=== PATIENT | male | born 1995 | race Native Hawaiian/Other Pacific Islander ===

== ENCOUNTER 2018-02-18 23:44 | Emergency (ER) | payer OTHER ==
[~2018-02-18] VITALS: Ht 185.4 cm; Wt 85.3 kg
[2018-02-19 00:22] VITALS: BP 119/67; TEMP 98.7
== END 2018-02-19 00:22 | disposition home or self-care (01) ==
LOC: ED 23:44
DX: K62.5 Hemorrhage of anus and rectum (principal)
CPT/HCPCS: 82272; 99282